=== PATIENT | male | born 1995 | race Caucasian/White ===

== ENCOUNTER 2016-12-23 15:36 | Emergency (ER) | payer OTHER ==
[2016-12-23 15:46] VITALS: BP 163/90; PULSE 99; RESP 20; O2SAT 98
--- NOTE | 2016-12-23 16:36 | ED.REPORT ---
HPI-General Illness Date of Service Dec 23, 2016 ED Provider: Dominguez Simons PA-C Brijesh is an otherwise healthy 21-year-old male presents with a chief complaint of a laceration to his right middle finger. 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 He is unsure of his tetanus history, and states his pain is fairly mild. Denies bleeding/clotting disorder Nursing Notes Stated Complaint: TIP OF FINGER CHOPPED OFF/L AND I Chief Complaint: Extremity Trauma Nursing Notes Reviewed: Yes Allergies: Uncoded Allergies: UNK ABX (Allergy, Unknown, 12/23/16) Scheduled Cephalexin (Cephalexin) 500 Mg Capsule 500 MG PO QID Scheduled PRN oxyCODONE (oxyCODONE) 5 Mg Tablet 5 MG PO Q4H PRN PRN For Pain General Time Seen by MD: 16:28 Chief Complaint Laceration Past Medical History Past Medical History Notes: Negative unless stated otherwise in history of present illness Physical Exam General: Well appearing, well developed, well nourished, no acute distress. Right hand: Distal portion of the third digit amputated, small amount of bone is visible in the wound. Finger nail intact. Full range of motion in MCP, DIP , and PIP joint Head: Atraumatic, normocephalic. Eyes: No scleral icterus or injection. No discharge. Vision grossly intact. ENT: Voice clear, hearing grossly intact. Respiratory: No respiratory distress, no increased work of breathing. Speaks in complete sentences. Skin: Warm and dry. Neurological: Grossly nonfocal. Psychological: alert and oriented. Speech appropriate, linear and logical. Behavior appropriate. Vital Signs Vital Signs Date Time Temp Pulse Resp B/P Pulse Ox O2 Delivery O2 Flow Rate FiO2 12/23/16 20:18 37.0 77 18 157/91 96 Room Air 12/23/16 15:46 37.4 99 20 163/90 98 Initial VS: Reviewed, Vital signs normal Interpretation & Diagnostics X-Ray Interpretation Xray Interpretation: PROCEDURE: X-RAY FINGERS, TWO VIEWS INDICATIONS: 21-year-old male with right hand injury. IMPRESSION: Amputation injury of the right third finger tip, involving a small amount of distal phalangeal tuft. Interpretation / Wet Read by: Interpret - Radiologist, Interp - P Procedures Laceration Management Laceration Management: Amputation of distal portion of right third finger. Dressed with antibiotic ointment, Xeroform dressing, padded gauze and gauze tube dressing. Procedure Performed by: Allied health pract Consent / Setup / Site Prep: Informed consent provided, Consent from patient , Time-out performed, Hand hygiene observed Wound Length: 2 cm Local Anesthesia: Lidocaine 1%, 5cc, 27g needle Digital Block: Yes Digit Involved: Middle finger right Wound Preparation: Hibiclens - Chlorhexidine, Normal saline Debridement: None Irrigation: Copious Foreign Body Explore / Removal: Explored for foreign body Post-Procedure / Complications: Antibiotic oint applied, Dressing applied, No complications, Condition improved, Tolerated procedure well, Patient stable Re-Eval/Medical Decision Med Decision/Clinical Course Otherwise healthy 21-year-old male presents with right middle finger laceration. Distal tip of the right middle finger was amputated when the patient got his hand caught while loading beams in a truck. Patient is unsure of his tetanus status. X-ray indicates a minor tuft fracture and soft tissue amputation. Physical exam reveals the distal tip of the right third finger abscess with a small amount of bone visible in the wound. Fingernail is intact. Discussed these findings with Dr. Mathur, and treated according his recommendations. Provided analgesia with a nerve block, irrigated the wound with normal saline and dermal wound cleanser. Applied antibiotic ointment, Xeroform gauze, gauze pad and gauze tube dressing. Advised the patient to contact Dr. Mathur tomorrow to arrange follow-up and to leave the dressing dry and in place until then. Provided a tetanus booster, prescription for cephalexin, advised over-the- counter analgesia provided a small amount of oxycodone to supplement. Provided return precautions. Discussed the plan with patient and family. They are couple with the plan and ready for discharge Consultation : Referral / Consult Name: Rich Mathur DO Consulted With: Orthopedic Call Returned at: 19:16 Note: Recommends dressing the wound with antibiotic ointment, Xeroform dressing, padded gauze, tube gauze. Call the morning to arrange follow-up in the next week or so. Instructed patient to leave the dressing on. Discharge & Departure Primary Impression: Fingertip amputation Encounter type: initial encounter Qualified Code: S68.129A - Partial traumatic metacarpophalangeal amputation of unspecified finger, initial encounter Disposition: Home Discharge Condition All VS Reviewed: Yes Condition: Stable Additional Instructions: Evaluation for a fingertip laceration emergency department. History physical and x-rays reveal that you amputated the tip of your right middle finger. I discussed this with our orthopedic surgeon, and we have dressed it according his recommendations. Please contact him tomorrow to arrange follow-up this week. You were given a first dose of Keflex prior to leaving the emergency department, as well as a prescription for more. Please start this tomorrow and continue it until all the medication is gone. The pain is best treated with 800 mg of ibuprofen (Advil, Motrin) every 6 hours, or 1000 mg of acetaminophen ( Tylenol) every 6 hours. These drugs can be taken at the same time for more severe pain. Posterior prescription for a small amount of oxycodone which she would add to this if he more pain relief. Please not drive or drink alcohol taking this medication. Please return to emergency department for any new or worsening symptoms including increasing fever, redness, pain, swelling or red streaks up your arm Referrals: Rich Mathur DO EDSupervising Provider for APC: Avelino Le MD copies to: Rich Mathur Seth PA-C Dec 23, 2016 16:36
[2016-12-23] MEDS ORDERED: TdaP Vaccine 0.5 mL Inj IM ONE (16:40)
--- NOTE | 2016-12-23 16:45 | DRSVH ---
PROCEDURE: X-RAY FINGERS, TWO VIEWS INDICATIONS: 21-year-old male with right hand injury. TECHNIQUE: AP hand, 2 views of the right third finger(s) acquired. COMPARISON: None. FINDINGS: Bones: There is an amputation injury involving the right third distal phalangeal tuft. Other bones ap pear intact. No suspicious bony injuries. Soft tissues: There is soft tissue defect involving the right third finger tip. No radiopaque soft ti ssue foreign bodies. IMPRESSION: Amputation injury of the right third finger tip, involving a small amount of distal phala ngeal tuft. Dictated by: Joe Collins M.D. on 12/23/2016 at 16:42 Approved by: Joe Collins M.D. on 12/23/2016 at 16:44
[2016-12-23] MEDS ORDERED: HYDROcodone-APAP 5-325 mg Tablet PO ONE ×2 (18:40→19:55)
[2016-12-23] MEDS ORDERED: _HYDROcodone/APAP 5-325 mg Tablet PO PRN (19:50)
[2016-12-23] MEDS ORDERED: CEPH500C PO (19:56)
[2016-12-23] MEDS ORDERED: OXYC5TAB72 PO (19:56)
[2016-12-23 20:18] VITALS: BP 157/91; PULSE 77; RESP 18; O2SAT 96
[2016-12-26] MEDS ORDERED: CEPH500C PO (11:45)
[2016-12-26] MEDS ORDERED: OXYC5CAP4 PO (11:45)
== END 2016-12-23 20:22 | disposition home or self-care (01) ==
LOC: SED 15:36
DX: S68.122A Partial traumatic metacarpophalangeal amputation of right middle finger, initial encounter (principal); W23.1XXA Caught, crushed, jammed, or pinched between stationary objects, initial encounter; Y92.9 Unspecified place or not applicable; Y93.89 Activity, other specified; Y99.8 Other external cause status; Z88.1 Allergy status to other antibiotic agents; Z23 Encounter for immunization

== ENCOUNTER 2016-12-27 11:52 | Day surgery (SDC) | payer OTHER ==
[~2016-12-27] VITALS: Ht 185.4 cm; Wt 94.5 kg
--- NOTE | 2016-12-27 11:02 | PCM.HPANE ---
Patient Data Surgeon Admitting Provider: Attending Provider:Aristides Baeza MD Primary Care Physician:Claudia Other Provider:Erasto Bonilla Anesthesia Reason for Visit Right 3RD Finger Open Amputation Ht/WT & BMI Weight (Kilograms): 94.347 Body Mass Index .00 Allergies Coded Allergies: No Known Allergies (Verified Allergy, Unknown, 12/27/16) Uncoded Allergies: UNK ABX (Allergy, Unknown, 12/23/16) Past Anesthesia History Anesthesia History: Denies:: Anesthesia Reactions, Malignant Hyperthermia Diabetes History Hx Diabetes?: No MRSA MRSA: No Medications Reported Medications oxyCODONE 5 Mg Capsule5 Mg PO Q6-8H PRN For Pain Ref 0 12/26/16 Cephalexin 500 Mg [id number] Mg PO Q8H #40 CAPSULE Ref 0 12/26/16 Discontinued Scripts oxyCODONE 5 Mg Tablet5 Mg PO Q4H PRN For Pain #10 TABLET Ref 0 Prov:Dominguez Simons-C 12/23/16 Cephalexin 500 Mg [id number] Mg PO QID #28 CAPSULE Ref 0 Prov:Dominguez Simons PA-C 12/23/16 History History of ENT Problems?: No Hx of Heart Problems?: No Cardiovascular History: Denies:: Congestive Heart Failure Heart Murmur Hypertension Hx of Respiratory Problem?: No Respiratory History: Denies:: Tuberculosis Use of C-PAP Machine Hx Neurologic Problems?: No Hx of GI Problems?: Yes Other GI Pertinent History: S/P HERNIA RPR Hx of Problems?: No Male Hx: Denies:: Prostate Problems Scrotal Mass Testicular Surgery Skin History: Denies:: History Skin Disorders? Pressure Ulcers Musculoskeletal History: Positive for:: Musculoskeletal Trauma (RT 3RD FINGER OPEN AMPUTATION (TRAUMA)=CURRENT PROBLEM) Hx of Psycho/Social Problems?: No Hx Surgeries?: Yes (HERNIA RPR) Hx Any Other Health Problems?: Yes Other History: Denies:: Cancer Endocrine Disease Hospitalization Thyroid Disease History Blood Transfusions: Denies:: Blood Transfusions Hx Diabetes: No Hx Alcohol Use: NoHx Substance Use: NoHave You Smoked inLast 12 mo: Yes ( CIGARS) Stop/Bang S-Snoring: Do You Snore Loudly: No T-Tired: feel tired, fatigued: No O-Obsered: Observed not breath: No P-Blood Pressure: treated: No A- Age over 50: No G- Gender Male: Yes ADAM Risk Assessment: Low Risk, <3 Yes Risk Assessment Category Category 1A: Patient has history of documented sleep apnea, and HAS NOT received any narcotic, sedative or anesthesia administration during this stay. Category 1B: Patient has history of documented sleep apnea, and HAS received any narcotic , sedative or anesthesia administration during this stay Category 2: Patient has SUSPECTED Obstructive Sleep Apnea, and HAS received any narcotic , sedative or anesthesia administration during this stay. Category 3: Patient has SUSPECTED Obstructive Sleep Apnea and HAS NOT received narcotic, sedative or anesthesia administration during this stay. Category 4: Outpatient in Procedural Areas with known sleep apnea or who screen positive for High Risk via the STOP/BANG questionnaire. Exam Exam General Appearance: Alert, Oriented X3, Cooperative, No Acute Distress HEENT/AIRWAY: MP 2 Lungs: Clear to Auscultation, Normal Air Movement Heart: Exam Unremarkable, Regular Rate/Rhythm, No Murmurs/Rubs/Gallops Plan Impression Patient chart reviewed, patient interviewed and anesthestic plan with risks, benefits, and alternatives discussed, and informed consent obtained. ASA Physical Status: ASA2 Mod Systemic Disease Anesthetic Plan: GA Bene/Risks/Altern/Consents: Yes HP Complete Prior to Induction: Yes Irineo Perkins MD Dec 27, 2016 11:02
[~2016-12-27 11:52] MED LIST: CEPH500C PO; CeFAZolin Inj 2 GM in IV Premix 1 EACH IV ONE; Dexamethasone 4 mg/mL Inj ONE; OXYC5CAP4 PO; Ondansetron 2 mg/mL 2 mL Inj ONE; Propofol 10,000 mCg/mL 20 mL Inj ONE; fentaNYL-PF 50 mCg/mL 2 mL Inj ONE
[2016-12-27] MEDS ORDERED: Lactated Ringer's 1,000 ML IV ONE (11:57)
[2016-12-27 12:09] VITALS: BP 147/79; PULSE 100; RESP 18; O2SAT 98
[2016-12-27] MEDS ORDERED: CeFAZolin Inj 2 gm / 50mL D5W IV ONE (12:23)
[2016-12-27] MEDS ORDERED: Lactated Ringer's 500 ML IV PRN (14:14)
[2016-12-27] MEDS ORDERED: Lactated Ringer's 1,000 ML IV SCH (14:14)
[2016-12-27] MEDS ORDERED: hydrALAZINE 20 mg/mL Inj IVPUSH PRN (14:15)
[2016-12-27] MEDS ORDERED: MetoCLOpramide 5 mg/mL 2 mL Inj IVPUSH PRN (14:15)
[2016-12-27] MEDS ORDERED: Dexamethasone 4 mg/mL Inj IVPUSH PRN (14:15)
[2016-12-27] MEDS ORDERED: Atropine 0.4 mg/mL Inj IVPUSH PRN (14:15)
[2016-12-27] MEDS ORDERED: Ondansetron 2 mg/mL 2 mL Inj IVPUSH PRN (14:15)
[2016-12-27] MEDS ORDERED: HYDROmorphone 1 mg/mL Inj IVPUSH PRN (14:15)
[2016-12-27] MEDS ORDERED: Labetalol 5 mg/mL 4 mL Inj IV PRN (14:15)
[2016-12-27] MEDS ORDERED: Phenylephrine 10,000 mCg/mL Inj IVPUSH PRN (14:15)
[2016-12-27] MEDS ORDERED: EPHEDrine Sulfate 50 mg/mL Inj IVPUSH PRN (14:15)
[2016-12-27 14:44] VITALS: BP 130/74; PULSE 84; RESP 12; O2SAT 98
[2016-12-27] MEDS ORDERED: Ketorolac 15 mg/mL Inj IVPUSH ONE (14:45)
[2016-12-27] MEDS ORDERED: oxyCODONE-Acetamin 5-325 mg Tablet PO PRN (14:45)
[2016-12-27 14:50] VITALS: BP 134/64; PULSE 82; RESP 13; O2SAT 99
--- NOTE | 2016-12-27 14:52 | PCM.ORTHOP ---
Orthopedic Operative Report Date of Service: Dec 27, 2016 Pre Operative Diagnosis Right third finger open distal phalanx amputation Post Operative Diagnosis Same Procedure Right third finger distal phalanx excision, revision of amputation at the level of the distal interphalangeal joint with primary closure Surgeon Surgeon: Aristides Baeza MD Assistants: None Indication for Procedure Right open distal phalanx application Findings Per dictation Details of Procedure Wilfrid Crane is a 19-year-old male s/p crush injury to the right third finger tip with traumatic amputation. The patient has excruciating pain at the fingertip due to the nature of the traumatic amputation involving the nail. The patient refused delayed closure as well as preservation of the nail matrix given possibility of abnormal nail and possible future surgery. 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 A clear explanation was given to the patient regarding the condition present, and the available conservative and surgical options. It was emphasized that the risks and benefits of surgery include but are not limited to infection, wound healing problems, damage to adjacent structures such as nerves, blood vessels and tendons, instructor substitute cosmetology disability and pain, arthritis, hypersensitivity, deep vein thrombosis, pulmonary embolism, broken hardware, failure of surgery, need for further procedures at time of surgery or later, cast related problems, loss of limb or life. The patient was given an explanation and the patient voiced understanding of what to expect after the procedure or surgery, the limitations in activities of daily living, the likely duration for post operative recovery and the instructions that are to be followed. At the end the patient was invited to seek clarification or ask further questions but there were none. The patient voiced understanding of the entire consultation. Description of Procedure: Patient was taken to operating room and transferred to operating table in supine position. Time out was performed with both anesthesia and orthopaedics faculty present to confirm details of case to be performed. A nonsterile right arm tourniquet was applied. After time out performed, preoperative antibiotics were administered. Patient position was again checked to ensure all bony prominences adequately padded. The right arm was prepped and draped in the usual sterile fashion to the level of the tourniquet. The right upper extremity was then exsanguinated with an esmark and the tourniquet was then inflated to 250 mmHG. A digital regional block was performed to anesthetized the third digit with 15 mL of 1% lidocaine. Incision was made circumferentially 1 mm proximal to the nail bed in viable tissue that bled once tourniquet was let down. The nail and germinal matrix were completely excised. The distal phalanx was excised and a freer was used to free the middle phalanx from the surrounding soft tissue. The bone was excised with a rongeur to the level of the distal interphalangeal joint. Hemostasis was obtained and the nerves were cauterized with the bipolar proximally to prevent neuroma formation. Wound was then thoroughly irrigated with NS with bacitracin. The skin was closed over the stump with 3-0 Vicryl and Nylon suture. Sterile dressing was placed on the incision and finger and then wrapped over a well padded dressing. Patient was then awoken from anesthesia and extubated, the neurovascular status was intact when checked in PACU. Patient tolerated procedure well and there was no complications. Grafts, Implants: None Complications There were no periprocedural complications identified. Condition Stable Anesthetic Administered: GA Catheters: None Output, Estimated Blood Loss: 5 Blood Admin during surgery: No Surgical Cast or Splint: Other Surgical Specimen Removed: No Specimen sent to Pathology: No copies to: Aristides Baeza MD, Christopher L MD Dec 27, 2016 14:52
[2016-12-27 15:15] VITALS: BP 114/60; PULSE 76; RESP 12; O2SAT 98
--- NOTE | 2016-12-27 15:26 | PCM.ANEP1 ---
Post Anesthesia Phase 1 PACU Phase 1 Assessment Date of Service: Dec 27, 2016 Vital Signs Vital Signs Date Time Temp Pulse Resp B/P Pulse Ox O2 Delivery O2 Flow Rate FiO2 12/27/16 15:15 76 12 114/60 98 Simple Mask 10 12/27/16 14:50 82 13 134/64 99 Simple Mask 10 12/27/16 14:44 84 12 130/74 98 Simple Mask 10 12/27/16 12:09 36.8 100 18 147/79 98 Room Air Anesthetic Administered: GA Level of Alertness: Awake, talking DOUGHERTY's with Equal Strength: Yes Pain: No Nausea or Vomiting: No Oxygen Delivery: Simple Mask Lungs: Clear to Auscultation, Normal Air Movement Irineo Perkins MD Dec 27, 2016 15:25
[2016-12-27] MEDS: fentaNYL-PF 50 mCg/mL 2 mL Inj IVPUSH PRN ×2 (15:29→15:32)
[2016-12-27 15:35] VITALS: BP 123/70; PULSE 94; RESP 16; O2SAT 95
[2016-12-27 16:05] VITALS: BP 117/64; PULSE 88; RESP 16; O2SAT 94
--- NOTE | 2016-12-30 08:55 | PCM.ANEP2 ---
Post Anesthesia Evaluation ASA/CMS Post Anesthesia VS in Patient's Normal Range?: Yes Resp Stable; Airway Patent?: Yes CV Function & Hydration Stable: Yes Mental Status Recovered?: Yes Pain control Satisfactory?: Yes N/V Control Satisfactory?: Yes Irineo Perkins MD Dec 30, 2016 08:55
== END 2016-12-27 23:59 | disposition home or self-care (01) ==
LOC: SAS 11:52
PROVIDERS: ATTEND Orthopaedic Surgery
DX: S62.632A Displaced fracture of distal phalanx of right middle finger, initial encounter for closed fracture (principal); W20.8XXA Other cause of strike by thrown, projected or falling object, initial encounter; Y93.H3 Activity, building and construction; Y92.9 Unspecified place or not applicable; F17.210 Nicotine dependence, cigarettes, uncomplicated
CPT/HCPCS: 26951; J0690; J1100; J1885; J2250; J2405; J3010; J7120